=== PATIENT | male | born 1940 | race Caucasian/White ===

== ENCOUNTER 2017-07-17 06:56 | Day surgery (SDC) | payer OTHER ==
[~2017-07-17] VITALS: Ht 177.8 cm; Wt 93.0 kg
--- NOTE | ~2017-07-17 | OP ---
Record Of Operation [facility] [address] [place]. [address] NAME: CHELLE LOPEZ : 36 STATUS : [facility] UNIT#: [id number] AGE: 77 ADM/REG DATE : 07/17/17 MR#: [id number] REPORT SERV DATE: 07/17/17 DICTATED BY: NADER SPANGLER DATE: 07/17/17 REPORT STATUS : Draft TRANSCRIBED BY: MODL DATE: 07/17/17 DATE OF PROCEDURE: PREOPERATIVE DIAGNOSIS: Dehiscent bone plates, maxilla, with cellulitis. POSTOPERATIVE DIAGNOSIS: Dehiscent bone plates, maxilla, with cellulitis. OPERATION: Debridement of wound and removal of bone plates. DESCRIPTION: After induction of general endotracheal anesthesia, the face and mouth were prepped and draped in usual manner. Patient received 2 g of Ancef intraoperatively and the anterior and lateral aspect of the maxilla was infiltrated with 0.5% Marcaine with 1:200,000 epinephrine solution total of 4 mL. Next, the incision was made along the lateral alveolar margin from the left posterior maxilla to the right posterior maxilla and the mucoperiosteum was reflected exposing the bone plates on either side. The posterior bone plates were removed in toto with removal of bone screws. The infraorbital bone plate was sectioned superiorly and the inferior pole two-thirds was removed. There was no palpable evidence of the bone plate intraorally. The wounds were irrigated with normal saline and the mucoperiosteum reapproximated with 3-0 continuous chromic gut suture. The patient's dental prostheses were reinserted and the patient was allowed to awaken on the inflated endotracheal tube, having tolerated the procedure well. BLOOD LOSS: 50 mL. IV FLUIDS: 400 mL of normal saline. WT/MODL Nader Spangler D.D.S. / [id number] CC: Rafy Cm M.D.
[~2017-07-17 06:56] MED LIST: ACET500CAP PO; ADDERALL30 MG PO; ALAVERT10 MG PO; BEN25 PO; CELEXA10 PO; COZ50 PO; CRANBERRY; ENDOCET1 TA3 PO; FERROUS GLUC324 MG PO; FLOMAX4 PO; GLUCOPHAGE1000 MG PO; INSNOVR SC; KLONO2 PO; LANTUSCART SC; LEVEMIR SC; LIPITOR20 PO; LOP25 PO; NEUR600 PO; NORV5 PO; POTASSIUM PO; PRADAXA150 MG PO; PRILO PO; PRIN2.5 PO; PROVIGIL2 PO; ROXICODONE15 MG PO; SPIRIVA INH; STOOL SOFTNER PO; SYMBICORT 160/41 INH INH; TRAZ50 PO; ULTRAM50 PO; [UNRECOGNIZED DRUG - OTHER]
[2017-07-17 08:04] LABS: HEMOGLOBIN 11.9 g/dL (13.6-17.8)
[2017-07-17 08:15] LABS: CHLORIDE, SERUM 103 MMOL/L (96-112); CO2 (CARBON DIOXIDE) 28 MMOL/L (24-34); CREATININE 1.18 MG/DL (0.70-1.30); GFR AFRICAN AMERICAN 68 ML/MIN (>=60); GFR NON AFRICAN AMERICAN 58 ML/MIN (>=60); POTASSIUM, SERUM 3.5 MMOL/L (3.5-5.3); SODIUM, SERUM 137 MMOL/L (135-148)
[2017-07-17 08:16] LABS: BUN (BLOOD UREA NITROGEN) 20 MG/DL (6-23); GLUCOSE, SERUM 79 MG/DL (60-99)
== END 2017-07-17 12:49 | disposition home or self-care (01) ==
LOC: SDC 06:56
PROVIDERS: Oral & Maxillofacial Surgery
PROC: 0RP Upper Joints, Removal (ICD-10-PCS; 2017-07-17)
PROC: 0RPD04Z Removal of Internal Fixation Device from Left Temporomandibular Joint, Open Approach (ICD-10-PCS; principal; 2017-07-17 08:15)
DX: T84.7XXA Infection and inflammatory reaction due to other internal orthopedic prosthetic devices, implants and grafts, initial encounter (principal); I10 Essential (primary) hypertension; E11.9 Type 2 diabetes mellitus without complications; J44.9 Chronic obstructive pulmonary disease, unspecified; Z88.5 Allergy status to narcotic agent; Z79.4 Long term (current) use of insulin; Z87.891 Personal history of nicotine dependence; Z90.49 Acquired absence of other specified parts of digestive tract; Z96.652 Presence of left artificial knee joint; Z98.890 Other specified postprocedural states; Z79.899 Other long term (current) drug therapy
CPT/HCPCS: 80048; 82962; 85014; 85018; 88300; 93005; A9270-GY; J0690; J1170; J2405; J2710; J3010